=== PATIENT | female | born 1985 | race Two or more races ===

== ENCOUNTER 2016-12-22 12:46 | Emergency (ER) | payer MEDICAID, OTHER ==
[~2016-12-22] VITALS: Ht 154.9 cm; Wt 65.8 kg
[2016-12-22 12:58] VITALS: BP 117/58
== END 2016-12-22 13:38 | disposition home or self-care (01) ==
LOC: ER 12:48
DX: J20.9 Acute bronchitis, unspecified (principal)
CPT/HCPCS: A4606; Z7610

== ENCOUNTER 2018-10-07 14:08 | Emergency (ER) | payer MEDICAID ==
[~2018-10-07] VITALS: Ht 154.9 cm; Wt 73.9 kg
[2018-10-07 14:08] VITALS: BP 120/75
--- NOTE | 2018-10-07 15:59 | NUR ---
Patient discharged to home in stable condition. Written and verbal after care instructions given. Patient verbalizes understanding of instruction.
== END 2018-10-07 15:59 | disposition home or self-care (01) ==
LOC: ER 14:10
DX: M65.351 Trigger finger, right little finger (principal); W21.09XA Struck by other hit or thrown ball, initial encounter; Y93.89 Activity, other specified; Y92.89 Other specified places as the place of occurrence of the external cause; Y99.8 Other external cause status
CPT/HCPCS: 29130; 99283; A4606; Z7610